=== PATIENT | female | born 1995 | race Caucasian/White ===

== ENCOUNTER → 2018-04-24 | Emergency (ER) | payer OTHER ==
[~2018-04-24] VITALS: Ht 154.9 cm; Wt 76.2 kg
[~2018-04-24] MED LIST: BACTRIM DS TAB1 EACH PO; BENADRYL25 MG PO; CEFTIN250 MG PO; KETO10TA2 PO; MEDROL4 MG PO
== END | disposition home or self-care (01) ==
LOC: ER 23:37
DX: L03.115 Cellulitis of right lower limb (principal)

== ENCOUNTER 2021-03-22 18:29 | Emergency (ER) | payer OTHER ==
[~2021-03-22] VITALS: Ht 154.9 cm; Wt 61.2 kg
[2021-03-22] MEDS ORDERED: [UNRECOGNIZED DRUG - CODE] (19:12)
== END 2021-03-22 21:02 | disposition home or self-care (01) ==
LOC: ER 18:29
DX: T78.40XA Allergy, unspecified, initial encounter (principal)

== ENCOUNTER 2021-03-24 19:57 | Emergency (ER) | payer OTHER ==
[~2021-03-24] VITALS: Ht 154.9 cm; Wt 61.2 kg
[~2021-03-24 19:57] MED LIST changes: +[UNRECOGNIZED DRUG - CODE]
[2021-03-24] MEDS ORDERED: MEDROLPACK (20:08)
== END 2021-03-24 23:47 | disposition home or self-care (01) ==
LOC: ER 19:57
DX: K29.70 Gastritis, unspecified, without bleeding (principal); R10.13 Epigastric pain; R11.2 Nausea with vomiting, unspecified

== ENCOUNTER 2024-02-17 15:43 | Emergency (ER) | payer OTHER ==
[~2024-02-17] VITALS: Ht 154.9 cm; Wt 63.5 kg
[~2024-02-17 15:43] MED LIST changes: +MEDROLPACK
[2024-02-17] MEDS ORDERED: ANTICONCEPTIVOS (16:05)
[2024-02-17] MEDS ORDERED: BUDESONIDE 0.5 MG/2 ML AMPUL.NEB IH STA (17:40)
[2024-02-17] MEDS ORDERED: CEFTRIAXONE SODIUM 1,000 MG VIAL IM STA (17:40)
[2024-02-17] MEDS ORDERED: GUAIFENESIN 200 MG/10 ML BLIST.PACK PO STA (17:42)
[2024-02-17] MEDS ORDERED: IPRATROPIUM BROMIDE 0.5 MG/2.5 ML AMPUL.NEB IH SCH (17:45)
[2024-02-17 18:42] LABS: URINE APPEARANCE Cloudy; URINE BILIRRUBIN Negative (NEGATIVE); URINE BLOOD Moderate; URINE COLOR Yellow; URINE GLUCOSE Negative (NEGATIVE); URINE KETONE Trace (NEGATIVE); URINE LEUKOCYTE Moderate; URINE NITRATE Positive; URINE PROTEIN Trace (NEGATIVE)
[2024-02-17 18:46] LABS: URINE EPITHELIAL CELLS 16.5 uL (0.0-38.8); URINE RBC 94.7 uL (0.0-20.8); URINE WBC 789.7 uL (0.0-23.2)
[2024-02-17 18:48] LABS: URINE BACTERIA > 9821.5 uL (0.0-1933); URINE CAST 0.24 uL (0.0-1.40)
== END 2024-02-17 19:39 | disposition home or self-care (01) ==
LOC: ER 15:44
PROVIDERS: General Practice
DX: J06.9 Acute upper respiratory infection, unspecified (principal); N39.0 Urinary tract infection, site not specified; B96.20 Unspecified Escherichia coli [E. coli] as the cause of diseases classified elsewhere; Z91.018 Allergy to other foods